=== PATIENT | male | born 1985 | race Caucasian/White ===

== ENCOUNTER 2021-05-06 09:16 | Emergency (ER) | payer SELFPAY ==
[2021-05-06 10:09] LABS: BASO # 0.04 K/mm3 (0.02-0.10); EOS # 0.35 K/mm3 (0.04-0.40); HEMATOCRIT 44.5 % (42.0-52.0); HEMOGLOBIN 14.6 g/dL (13.5-18.0); LYMPH# 2.61 K/mm3 (1.50-4.00); MEAN CELL VOLUME 89 fl (78-100); MEAN CORPUSCULAR HEMOGLOBIN 29 pg (27-31); MEAN CORPUSCULAR HGB CONC 33 g/dL (33-37); MONO # 0.69 K/mm3 (0.20-0.80); NEU # 5.02 K/mm3 (1.40-6.50); PLATELET COUNT 226 K/mm3 (130-400); RED BLOOD COUNT 5.03 M/mm3 (4.20-5.60); WHITE BLOOD COUNT 8.7 K/mm3 (4.8-10.8)
[2021-05-06 10:16] LABS: POTASSIUM 4.1 mmol/L (3.5-5.1)
[2021-05-06 10:17] LABS: CALCIUM 9.4 mg/dL (8.3-10.5)
[2021-05-06 10:18] LABS: TOTAL PROTEIN 7.2 g/dL (6.4-8.3)
[2021-05-06 10:20] LABS: TOTAL BILIRUBIN 0.5 mg/dL (0.2-1.2)
[2021-05-06 10:41] LABS: URINE APPEARANCE CLOUDY; URINE COLOR RED
[2021-05-06 10:42] LABS: URINE BILIRUBIN NEGATIVE (NEGATIVE); URINE BLOOD 250 ery/uL (NEGATIVE); URINE GLUCOSE NEGATIVE (NEGATIVE); URINE KETONE NEGATIVE (NEGATIVE); URINE LEUKOCYTE ESTERASE 1+ (NEGATIVE); URINE NITRATE NEGATIVE (NEGATIVE); URINE PROTEIN(semi-quant) 1+ mg/dL (NEGATIVE); URINE UROBILINOGEN NORMAL (NORMAL)
[2021-05-06 10:43] LABS: URINE MUCUS PRESENT (NOT PRESENT)
[2021-05-06] MEDS ORDERED: BACTRIM DS TAB1 EACH PO (12:03)
[2021-05-06] MEDS ORDERED: ZOFRAN ODT4 MG PO (12:03)
[2021-05-06] MEDS ORDERED: PERCOCET 325 MG1 TA2 PO (12:04)
[2021-05-06 12:24] VITALS: BP 140/86
== END 2021-05-06 12:20 | disposition home or self-care (01) ==
LOC: ED 09:16
PROVIDERS: Physician Assistant
DX: N39.0 Urinary tract infection, site not specified (principal); N20.2 Calculus of kidney with calculus of ureter; N17.9 Acute kidney failure, unspecified; I10 Essential (primary) hypertension; F17.200 Nicotine dependence, unspecified, uncomplicated; Z96.0 Presence of urogenital implants
CPT/HCPCS: J0696; J1885; Q9967